=== PATIENT | female | born 1960 | race Caucasian/White ===

== ENCOUNTER → 2017-05-03 | Outpatient (CLI) | payer BC ==
[~2017-05-03] MED LIST: ASPI-983 PO; EST05TD TD; FERR325C PO; LEVO100T7 PO; LEVO500T69 PO; LVT.088T; LVT.15T PO; LVT.1T PO; MELO15TA39 PO; METR500T PO; OXYC-12 PO; PANT40TA3 PO
--- NOTE | 2017-05-03 18:06 | Diagnostic Imaging Report ---
INDICATION: Lump in the lateral left neck. FINDINGS: Sonographic interrogation of the area of lump in the lateral left neck was performed. No solid or cystic mass is detected. IMPRESSION: No sonographic abnormality is detected. Dictated by: Dictated on workstation # [id number]
== END ==
LOC: RAD 13:28
PROVIDERS: ATTEND Family Medicine
DX: E03.9 Hypothyroidism, unspecified (principal); R22.1 Localized swelling, mass and lump, neck
CPT/HCPCS: 76536

== ENCOUNTER → 2018-01-18 | Outpatient (CLI) | payer BC ==
--- NOTE | 2018-01-18 13:35 | Diagnostic Imaging Report ---
INDICATION: Routine screening. Comparison is made with prior mammogram from 05/31/2009. 2-D and 3-D bilateral screening mammography was performed with CAD. The current study was also evaluated with a Computer Aided Detection (CAD) system. FINDINGS: Scattered fibroglandular densities are identified bilaterally. The parenchymal pattern is stable. Intramammary lymph nodes in the outer left breast appear stable. No new mass or malignant-appearing microcalcifications are seen. There are benign calcifications. The axillae are unremarkable. IMPRESSION: No mammographic features suspicious for malignancy are identified. ACR BI-RADS Category 2: Benign findings. Result letter will be mailed to the patient. Note: At least 10% of breast cancer is not imaged by mammography. Dictated by: Dictated on workstation # [id number]
== END ==
LOC: RAD 07:40
PROVIDERS: ATTEND Family Medicine
DX: Z12.31 Encounter for screening mammogram for malignant neoplasm of breast (principal)
CPT/HCPCS: 77067

== ENCOUNTER 2018-02-12 13:15 | Outpatient (CLI) | payer BC ==
[~2018-02-12] VITALS: Ht 162.6 cm; Wt 99.8 kg
[2018-02-12] MEDS ORDERED: METO-370 PO (13:45)
[2018-02-12] MEDS ORDERED: BUPR150T7 PO (13:45)
[2018-02-12] MEDS ORDERED: AMLO5TAB7 PO (13:45)
[2018-02-12] MEDS ORDERED: ASPI-999 PO (13:48)
== END 2018-02-12 13:48 | disposition home or self-care (01) ==
LOC: PREOP 13:15
PROVIDERS: ATTEND Surgery
DX: Z01.818 Encounter for other preprocedural examination (principal)

== ENCOUNTER 2018-02-18 06:53 | Day surgery (SDC) | payer BC ==
[~2018-02-18] VITALS: Ht 162.6 cm; Wt 99.8 kg
[~2018-02-18 06:53] MED LIST changes: +AMLO5TAB7 PO; +ASPI-999 PO; +BUPR150T7 PO; +METO-370 PO
[2018-02-18] MEDS ORDERED: LACTATED RINGERS 1,000 ML IV ONE (07:04)
[2018-02-18] MEDS ORDERED: NS IV 500 ML 500 ML IV PRN (07:24)
[2018-02-18 07:27] VITALS: BP 133/83
[2018-02-18] MEDS ORDERED: fentaNYL INJECTION 100 MCG/2 ML AMP IVP ONE (07:30)
[2018-02-18] MEDS ORDERED: MIDAZOLAM 2 MG/2 ML (VERSED) VIAL IVP ONE (07:30)
[2018-02-18] MEDS ORDERED: MIDAZOLAM 2 MG/2 ML (VERSED) VIAL ONE ×3 (07:44)
[2018-02-18] MEDS ORDERED: fentaNYL INJECTION 100 MCG/2 ML AMP ONE ×2 (07:45→08:56)
--- NOTE | 2018-02-18 08:43 | History & Physicial ---
History of Present Illness History of Present Illness Reason for visit/HPI to undergo screening colonoscopy. No family history of colon cancer Date of Admission 02/18/18 Date Seen by a Provider: Feb 18, 2018 Time Seen by a Provider: 08:42 I consulted on this patient on 02/18/18 08:41 Attending Physician Marcy Tejeda MD Admitting Physician Corine Duffy DO Consult Allergies and Home Medications Allergies Coded Allergies: NKANo Known Allergies (Unverified Allergy, Mild, 06/17/09) Home Medications Amlodipine Besylate 5 Mg Tablet, 5 MG PO DAILY, (Reported) Aspirin 81 Mg Tab.chew, 81 MG PO DAILY, (Reported) Bupropion HCl 150 Mg Tab.er.24h, 150 MG PO DAILY, (Reported) Levothyroxine Sodium 100 Mcg Tablet, 100 MCG PO DAILY, (Reported) Metoprolol Succinate 50 Mg Tab.er.24h, 50 MG PO HS, (Reported) Patient Home Medication List Home Medication List Reviewed: Yes Past Uyzavkl-Rijfrx-Rmxmxj Hx Patient Social History Marrital Status: Employed/Student: unemployed Alcohol Use: Denies Use Recreational Drug Use: No Smoking Status: Never a Smoker Recent Foreign Travel: No Contact w/other who traveled: No Recent Hopitalizations: No Immunizations Up To Date Date of Influenza Vaccine: Dec 31, 2017 Seasonal Allergies Seasonal Allergies: Yes Surgeries Appendectomy, Gallbladder, Hysterectomy Cardiovascular Yes Hypertension Reproductive System Hx Reproductive Disorders: No Sexually Transmitted Disease: No Endocrine History of Endocrine Disorders: Yes Endocrine Disorders: Hypothyroidsim Review of Systems Constitutional: no symptoms reported EENTM: no symptoms reported Respiratory: no symptoms reported Cardiovascular: no symptoms reported Gastrointestinal: no symptoms reported Genitourinary: no symptoms reported Musculoskeletal: no symptoms reported Skin: no symptoms reported Psychiatric/Neurological: No Symptoms Reported Physical Exam Vital Signs Vital Signs - First Documented 02/18/18 07:27 Temp 98.1 Pulse 62 Resp 18 B/P (MAP) 133/83 (100) Pulse Ox 97 O2 Delivery Room Air Capillary Refill : Height, Weight, BMI Height: 5'4.00" Weight: 220lbs. 0.0oz. 99.586214pp; 37.8 BMI Method:Estimated General Appearance: No Apparent Distress Neck: Normal Inspection Respiratory: Lungs Clear Cardiovascular: Regular Rate, Rhythm Gastrointestinal: Non Tender, Soft Rectal: Deferred Neurologic/Psychiatric: Alert, Oriented x3 Skin: Warm/Dry Assessment/Plan Assessment and Plan lady to undergo screening colonoscopy. Discussed in detail Admission Diagnosis Admission Status: Other (Outpt Proc) MARCY TEJEDA MD Feb 18, 2018 08:43
--- NOTE | 2018-02-18 08:43 | Conscious Sedation/ASA ---
Conscious Sedation Pre-Proced Time 08:43 ASA Score 2 For ASA 3 and 4: Consider anesthesia and medical clearance. Also, for patients with a history of failed moderate sedation consider anesthesia. Airway Lungs Heart ASA score ASA 1: a normal healthy patient ASA 2: a patient with a mild systemic disease (mid diabetes, controlled hypertension, obesity ASA 3: a patient with a severe systemic disease that limits activity (angina , COPD, prior Myocardial infarction) ASA 4: a patient with an incapacitating disease that is a constant threat to life (CHF, renal failure) ASA 5: a moribund patient not expected to survive 24 hrs. (ruptured aneurysm) ASA 6: a declared brain patient whose organs are being harvested. For emergent operations, add the letter E after the classification Mallampati Classification Grade 1 Sedation Plan Discussed options with patient/fam The patient is an appropriate candidate to undergo the planned procedure, sedation, and anesthesia. The patient immediately re-assessed prior to indication. MARCY FLOREZ MD Feb 18, 2018 08:43
[2018-02-18 09:15] VITALS: BP 107/64
--- NOTE | 2018-02-18 09:19 | Endo Procedure Record ---
Endo Procedure Report Date of Procedure Last Colonoscopy: No Feb 18, 2018 Surgeon (s) MARCY FLOREZ MD Post Procedure/Op Diagnosis sigmoid diverticulosis Procedure Performed colonoscopy to cecum Description of Procedure Anesthesia Type: Conscious Sedation Specimen(s) collected/removed None Description of the Procedure indication for the procedure: This lady came in for screening colonoscopy. She denied any family history of colon cancer or polyps. Informed consent was obtained after reviewing the procedure in detail. Description of the procedure: She was placed in left lateral decubitus position and her vital signs were monitored. Conscious sedation was achieved using Versed and fentanyl. Digital rectal examination was unremarkable. The colonoscope was then introduced in the rectum and advanced all the way up to the cecum. The quality of bowel preparation was rather suboptimal. I was however able to irrigate the mucosa and complete the examination. The scope was then withdrawn slowly and the mucosa examined in a systematic fashion. Finding: Very few sigmoid diverticulae. She tolerated the procedure well and was taken back to the nursing area in a stable condition. Impression: Screening colonoscopy. No polyps. No family history. Recommend repeating in 10 years. Copy Copies To 1: GAVIN NDIAYE XAVIER M MD Feb 18, 2018 09:19
--- NOTE | 2018-02-18 09:20 | Discharge Inst-Simple/Standard ---
Discharge Inst-Standard Discharge Medications New, Converted or Re-Newed RX: Other Patient Instructions/Follow Up Plan of Care/Instructions/FU: repeat colonoscopy in 10 years Activity as Tolerated: Yes Discharge Diet: No Restrictions MARCY FLOREZ MD Feb 18, 2018 09:20
[2018-02-18 09:45] VITALS: BP 118/73
[2018-02-18 10:15] VITALS: BP 118/73
== END 2018-02-18 10:15 | disposition home or self-care (01) ==
LOC: ENDO 06:53
PROVIDERS: ATTEND Surgery
DX: Z12.11 Encounter for screening for malignant neoplasm of colon (principal); E03.9 Hypothyroidism, unspecified; I10 Essential (primary) hypertension; Z79.899 Other long term (current) drug therapy; Z79.82 Long term (current) use of aspirin

== ENCOUNTER 2018-04-22 08:33 | Day surgery (SDC) | payer BC ==
[2018-04-22] VITALS (10 sets, daily range): BP systolic 120–140; BP diastolic 62–86
[~2018-04-22] VITALS: Ht 162.6 cm; Wt 97.5 kg
[~2018-04-22 08:33] MED LIST changes: -AMLO5TAB7 PO; +AMLO5TAB9 PO
--- OUTSIDE RECORDS SUMMARY | 2018-04-22 08:39 | XMS REPORT | Continuity of Care Document ---
Author Author [facility] Organization [facility] Address Unknown Phone Unavailable Allergies Active Description Code Type Severity Reaction Onset Reported/Identified Relationship to Patient Clinical Status Yes NKANo Known Allergies NKA Miscellaneous Allergy Mild N/A 06/17/2009 Medications There is no data. 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 05/04/2017 ORENDER DO, GAVIN S Ot E03.9 HYPOTHYROIDISM, UNSPECIFIED 05/04/2017 ORENDER DO, GAVIN S Ot R22.1 LOCALIZED SWELLING, MASS AND LUMP, NECK 05/04/2017 ORENDER DO, GAVIN S Ot E03.9 HYPOTHYROIDISM, UNSPECIFIED 05/04/2017 ORENDER DO, GAVIN S Ot R22.1 LOCALIZED SWELLING, MASS AND LUMP, NECK 05/16/2017 ORENDER DO, GAVIN S Ot E03.9 HYPOTHYROIDISM, UNSPECIFIED 05/16/2017 ORENDER DO, GAVIN S Ot R22.1 LOCALIZED SWELLING, MASS AND LUMP, NECK 06/29/2017 ORENDER DO, GAVIN S Ot E03.9 HYPOTHYROIDISM, UNSPECIFIED 06/29/2017 ORENDER DO, GAVIN S Ot R22.1 LOCALIZED SWELLING, MASS AND LUMP, NECK 08/20/2017 ORENDER DO, GAVIN S Ot E03.9 HYPOTHYROIDISM, UNSPECIFIED 08/20/2017 ORENDER DO, GAVIN S Ot R22.1 LOCALIZED SWELLING, MASS AND LUMP, NECK 01/22/2018 BERTJENNY GAVIN S Ot Z12.31 ENCNTR SCREEN MAMMOGRAM FOR MALIGNANT NE 01/24/2018 ZELDA NAGY GAVIN S Ot Z12.31 ENCNTR SCREEN MAMMOGRAM FOR MALIGNANT NE 02/12/2018 VIKKI MARSHALL, MARCY Foreman Ot Z01.818 ENCOUNTER FOR OTHER PREPROCEDURAL EXAMIN 02/12/2018 MARCY FLOREZ MD Ot Z01.818 ENCOUNTER FOR OTHER PREPROCEDURAL EXAMIN 02/12/2018 MARCY FLOREZ MD Ot Z01.818 ENCOUNTER FOR OTHER PREPROCEDURAL EXAMIN 02/18/2018 MARCY FLOREZ MD Ot E03.9 HYPOTHYROIDISM, UNSPECIFIED 02/18/2018 MARCY FLOREZ MD Ot I10 ESSENTIAL (PRIMARY) HYPERTENSION 02/18/2018 MARCY FLOREZ MD Ot Z12.11 ENCOUNTER FOR SCREENING FOR MALIGNANT NE 02/18/2018 MARCY FLOREZ MD Ot Z79.82 DETENTION (CURRENT) USE OF ASPIRIN 02/18/2018 MARCY FLOREZ MD Ot Z79.899 OTHER DETENTION (CURRENT) DRUG THERAPY 02/19/2018 MARCY FLOREZ MD Ot E03.9 HYPOTHYROIDISM, UNSPECIFIED 02/19/2018 MARCY FLOREZ MD Ot I10 ESSENTIAL (PRIMARY) HYPERTENSION 02/19/2018 MARCY FLOREZ MD Ot Z12.11 ENCOUNTER FOR SCREENING FOR MALIGNANT NE 02/19/2018 MARCY FLOREZ MD Ot Z79.82 DETENTION (CURRENT) USE OF ASPIRIN 02/19/2018 MARCY FLOREZ MD Ot Z79.899 OTHER DETENTION (CURRENT) DRUG THERAPY 02/26/2018 MARCY FLOREZ MD Ot E03.9 HYPOTHYROIDISM, UNSPECIFIED 02/26/2018 MARCY FLOREZ MD Ot I10 ESSENTIAL (PRIMARY) HYPERTENSION 02/26/2018 MARCY FLOREZ MD Ot Z12.11 ENCOUNTER FOR SCREENING FOR MALIGNANT NE 02/26/2018 MARCY FLOREZ MD Ot Z79.82 DETENTION (CURRENT) USE OF ASPIRIN 02/26/2018 MARCY FLOREZ MD Ot Z79.899 OTHER P[employer] F[employer] EGG (CURRENT) DRUG THERAPY Procedures There is no data. Results There is no data. Encounters ACCT No. Visit Date/Time Discharge Status Pt. Type Provider Facility Loc./Unit Complaint [id number] 02/18/2018 06:53:00 02/18/2018 10:15:00 DIS Outpatient MARCY FLOREZ MD [facility] ENDO SCREENING [id number] 02/12/2018 13:15:00 02/12/2018 13:48:00 DIS Outpatient MARCY FLOREZ MD [facility] PREOP COLONOSCOPY [id number] 01/18/2018 07:40:00 01/18/2018 23:59:59 CLS Outpatient GAVIN NDIAYE DO [facility] RAD SCREENING [id number] 05/03/2017 13:28:00 05/03/2017 23:59:59 CLS Outpatient GAVIN NDIAYE DO [facility] RAD LT NECK MASS [id number] 01/07/2015 14:07:00 01/08/2015 11:05:00 DIS Outpatient SHIN MARSHALL, NATALYA Mitchell [facility] CATH CHEST PAIN 09/201512/22/2017 23:11:53 12/22/2017 23:59:59 CLS Outpatient
[2018-04-22] MEDS ORDERED: ASPIRIN 81 MG CHEW (CHILDREN'S ASA) PO ONE (08:45)
[2018-04-22 08:51] LABS: BASOPHILS # (AUTO) 0.1 10^3/uL (0.0-0.1); BASOPHILS % (AUTO) 1 % (0-10); EOSINOPHILS # (AUTO) 0.2 10^3/uL (0.0-0.3); EOSINOPHILS % (AUTO) 3 % (0-10); HEMATOCRIT 43 % (35-52); HEMOGLOBIN 14.1 G/DL (11.5-16.0); LYMPHOCYTES # (AUTO) 2.4 X 10^3 (1.0-4.0); LYMPHOCYTES % (AUTO) 34 % (12-44); MEAN CORPUSCULAR HEMOGLOBIN 29 PG (25-34); MEAN CORPUSCULAR HGB CONC 33 G/DL (32-36); MEAN CORPUSCULAR VOLUME 86 FL (80-99); MEAN PLATELET VOLUME 10.9 FL (7.4-10.4); MONOCYTES # (AUTO) 0.5 X 10^3 (0.0-1.0); MONOCYTES % (AUTO) 7 % (0-12); NEUTROPHILS # (AUTO) 3.9 X 10^3 (1.8-7.8); NEUTROPHILS % (AUTO) 55 % (42-75); PLATELET COUNT 202 10^3/uL (130-400); RED BLOOD COUNT 4.95 10^6/uL (4.35-5.85)
[2018-04-22] MEDS: NITROGLYCERIN 0.4 MG SL TABS BTL 25'S SL PRN ×3 (08:57→09:25)
[2018-04-22 09:02] LABS: INR 0.9 (0.8-1.4); PROTHROMBIN TIME PATIENT 12.3 SEC (12.2-14.7)
[2018-04-22 09:10] LABS: ALANINE AMINOTRANSFERASE 20 U/L (0-55); ALBUMIN 4.6 GM/DL (3.2-4.5); ALKALINE PHOSPHATASE 59 U/L (40-136); BILIRUBIN,TOTAL 0.7 MG/DL (0.1-1.0); BUN/CREATININE RATIO 13; CALCIUM 9.7 MG/DL (8.5-10.1); CARBON DIOXIDE 25 MMOL/L (21-32); CHLORIDE 106 MMOL/L (98-107); CREATININE SERUM 0.83 MG/DL (0.60-1.30); GFR ESTIMATED > 60; GLUCOSE 97 MG/DL (70-105); MAGNESIUM 2.4 MG/DL (1.8-2.4); POTASSIUM 3.8 MMOL/L (3.6-5.0); SODIUM 140 MMOL/L (135-145); TOTAL PROTEIN 8.2 GM/DL (6.4-8.2)
--- NOTE | 2018-04-22 09:14 | NUR ---
DR NOTIFIED OF 2ND NITRO GIVEN ET PT COMPLAINING OF A HEADACHE.
--- NOTE | 2018-04-22 09:16 | Diagnostic Imaging Report ---
CLINICAL INDICATION: Patient complains of chest pain x2 days and also complains of left arm pain that radiates to her back. EXAM: Portable chest x-ray upright view. COMPARISONS: Chest x-ray dated 01/07/2015. FINDINGS: Lungs/pleura: Lungs are clear. There is no pneumothorax. There is no pleural effusion. Mediastinum: Unremarkable. Pulmonary vasculature: Unremarkable. Heart: Unremarkable. Bones/extrathoracic soft tissue: Unremarkable. IMPRESSION: There is no radiographic evidence of acute cardiopulmonary process. Dictated by: Dictated on workstation # [id number]
[2018-04-22 09:17] LABS: MYOGLOBIN SERUM 44.3 NG/ML (10.0-92.0)
--- NOTE | 2018-04-22 09:24 | ED Chest Pain ---
General Chief Complaint: Chest Pain Stated Complaint: CHEST PAIN Nursing Triage Note: ARRIVED VIA AMB TO ROOM 04 WITH COMPLAINTS OF CHEST PAIN FOR X3 DAYS. ALSO COMPLAINS LEFT ARMPAIN THAT RADIATES TO HER BACK. Nursing Sepsis Screen: No Definite Risk Source: patient Exam Limitations: no limitations History of Present Illness Date Seen by Provider: Apr 22, 2018 Time Seen by Provider: 08:30 Initial Comments Here with report of chest pain intermittent over the last 3 days. Reports persistent over the last 12 hours and now radiating to her left arm and her back. Denies nausea or vomiting. Denies breathing problems. 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 Timing/Duration: changing over time, 2-3 days Severity/Quality: moderate, pressure Location: central (left-sided) Radiation: arms (left), shoulders (left) Activities at Onset: none Prior CP/Workup: cardiac cath, echocardiography Modifying Factors: improves with rest ASA po CONCRETE LAYER: No NTG SL CONCRETE LAYER: No Associated Symptoms: No abdominal pain, No back pain, No nausea/vomiting, No shortness of breath, No weakness Allergies and Home Medications Allergies Coded Allergies: NKANo Known Allergies (Unverified Allergy, Mild, 06/17/09) Home Medications Amlodipine Besylate 5 Mg Tablet, 5 MG PO DAILY, (Reported) Aspirin 81 Mg Tab.chew, 81 MG PO DAILY, (Reported) Bupropion HCl 150 Mg Tab.er.24h, 150 MG PO DAILY, (Reported) Levothyroxine Sodium 100 Mcg Tablet, 100 MCG PO DAILY, (Reported) Metoprolol Succinate 50 Mg Tab.er.24h, 50 MG PO HS, (Reported) Patient Home Medication List Home Medication List Reviewed: Yes Review of Systems Review of Systems Constitutional: see HPI EENTM: No Symptoms Reported Respiratory: No Symptoms Reported Cardiovascular: See HPI, Chest Pain; Denies Edema Gastrointestinal: Denies Abdominal Pain, Denies Nausea, Denies Vomiting Genitourinary: No Symptoms Reported Musculoskeletal: joint pain, muscle pain Skin: No change in color, No rash Psychiatric/Neurological: No Symptoms Reported All Other Systems Reviewed Negative Unless Noted: Yes Past Ailgyel-Ecxxul-Fnngeq Hx Past Med/Social Hx: Reviewed Nursing Past Med/Soc Hx Patient Social History Alcohol Use: Denies Use Recreational Drug Use: No Smoking Status: Never a Smoker Recent Foreign Travel: No Contact w/Someone Who Travel: No Recent Infectious Disease Expo: No Recent Hopitalizations: No Immunizations Up To Date Date of Influenza Vaccine: Dec 31, 2017 Seasonal Allergies Seasonal Allergies: Yes Past Medical History Surgeries: Yes Appendectomy, Gallbladder, Hysterectomy Respiratory: No Cardiac: Yes Hypertension Neurological: No Reproductive Disorders: No Sexually Transmitted Disease: No Genitourinary: No Gastrointestinal: No Musculoskeletal: No Endocrine: Yes Hypothyroidsim Cancer: No Did You Recieve Any Treatments: No Psychosocial: No Integumentary: No Blood Disorders: No Family Medical History Reviewed Nursing Family Hx Physical Exam Vital Signs Vital Signs - First Documented 04/22/18 08:35 Temp 98.0 Pulse 85 Resp 16 B/P (MAP) 140/ Pulse Ox 99 O2 Delivery Room Air Capillary Refill : Less Than 3 Seconds Height, Weight, BMI Height: 5'3.00" Weight: 170lbs. 0.0oz. 77.146428rk; 37.8 BMI Method:Estimated General Appearance: No Apparent Distress, WD/WN HEENT: PERRL/EOMI, Pharynx Normal Neck: Non Tender, Supple Respiratory: Lungs Clear, Normal Breath Sounds Cardiovascular: Regular Rate, Rhythm, No Murmur Gastrointestinal: Non Tender, Soft Extremity: Normal Range of Motion, Non Tender Neurologic/Psychiatric: Alert, Oriented x3 Skin: Normal Color, Warm/Dry Progress/Results/Core Measures Results/Orders Lab Results Laboratory Tests Test 04/22/18 08:45 Range/Units White Blood Count 7.0 4.3-11.0 10^3/uL Red Blood Count 4.95 4.35-5.85 10^6/uL Hemoglobin 14.1 11.5-16.0 G/DL Hematocrit 43 35-52 % Mean Corpuscular Volume 86 80-99 FL Mean Corpuscular Hemoglobin 29 25-34 PG Mean Corpuscular Hemoglobin Concent 33 32-36 G/DL Red Cell Distribution Width 13.0 10.0-14.5 % Platelet Count 202 130-400 10^3/uL Mean Platelet Volume 10.9 H 7.4-10.4 FL Neutrophils (%) (Auto) 55 42-75 % Lymphocytes (%) (Auto) 34 12-44 % Monocytes (%) (Auto) 7 0-12 % Eosinophils (%) (Auto) 3 0-10 % Basophils (%) (Auto) 1 0-10 % Neutrophils # (Auto) 3.9 1.8-7.8 X 10^3 Lymphocytes # (Auto) 2.4 1.0-4.0 X 10^3 Monocytes # (Auto) 0.5 0.0-1.0 X 10^3 Eosinophils # (Auto) 0.2 0.0-0.3 10^3/uL Basophils # (Auto) 0.1 0.0-0.1 10^3/uL Prothrombin Time 12.3 12.2-14.7 SEC INR Comment 0.9 0.8-1.4 Activated Partial Thromboplast Time 30 24-35 SEC D-Dimer 0.26 0.00-0.49 UG/ML Sodium Level 140 135-145 MMOL/L Potassium Level 3.8 3.6-5.0 MMOL/L Chloride Level 106 98-107 MMOL/L Carbon Dioxide Level 25 21-32 MMOL/L Anion Gap 9 5-14 MMOL/L Blood Urea Nitrogen 11 7-18 MG/DL Creatinine 0.83 0.60-1.30 MG/DL Estimat Glomerular Filtration Rate > 60 BUN/Creatinine Ratio 13 Glucose Level 97 70-105 MG/DL Calcium Level 9.7 8.5-10.1 MG/DL Corrected Calcium 8.5-10.1 MG/DL Magnesium Level 2.4 1.8-2.4 MG/DL Total Bilirubin 0.7 0.1-1.0 MG/DL Aspartate Amino Transf (AST/SGOT) 21 5-34 U/L Alanine Aminotransferase (ALT/SGPT) 20 0-55 U/L Alkaline Phosphatase 59 40-136 U/L Myoglobin 44.3 10.0-92.0 NG/ML Troponin I < 0.028 <0.028 NG/ML Total Protein 8.2 6.4-8.2 GM/DL Albumin 4.6 H 3.2-4.5 GM/DL Lipase 17 8-78 U/L My Orders Orders - MARLEEN RAYMUNDO MD Cbc With Automated Diff (04/22/18 08:40) Magnesium (04/22/18 08:40) Chest 1 View, Ap/Pa Only (04/22/18 08:40) Ekg Tracing (04/22/18 08:40) Cardiac Profile 1 (04/22/18 08:40) Comprehensive Metabolic Panel (04/22/18 08:40) Myoglobin Serum (04/22/18 08:40) Protime With Inr (04/22/18 08:40) Partial Thromboplastin Time (04/22/18 08:40) O2 (04/22/18 08:40) Monitor-Rhythm Ecg Trace Only (04/22/18 08:40) Lipid Panel (04/23/18 06:00) Aspirin Chewable Tablet (Baby Aspirin Ch (04/22/18 08:45) Saline Lock/Iv-Start (04/22/18 08:40) Nitroglycerin 0.4 Mg Btl 25's (Nitrostat (04/22/18 09:00) Lipase (04/22/18 08:47) Fibrin Degradation Products (04/22/18 08:47) Acetaminophen Tablet (Tylenol Tablet) (04/22/18 09:30) Saline Lock/Iv-Start (04/22/18 09:34) Ns Iv 1000 Ml (Sodium Chloride 0.9%) (04/22/18 09:34) Ct Angio Chest W (04/22/18 09:34) Lidocaine 2% Viscous 15 Ml (Xylocaine Vi (04/22/18 09:45) Antacid Suspension (Mylanta Suspension (04/22/18 09:45) Pantoprazole Injection (Protonix Injecti (04/22/18 09:45) Morphine Injection (Morphine Injection (04/22/18 09:41) Iohexol Injection (Omnipaque 350 Mg/Ml 1 (04/22/18 09:45) Contrast Received (Contrast Received) (04/22/18 09:45) Ns (Ivpb) (Sodium Chloride 0.9% Ivpb Bag (04/22/18 09:45) Fentanyl Injection (Sublimaze Injection (04/22/18 11:18) Medications Given in ED Current Medications Medications Dose Ordered Sig/Vicki Route Start Time Stop Time Status Last Admin Dose Admin Acetaminophen 1,000 mg ONCE ONCE PO 04/22/18 09:30 04/22/18 09:31 DC 04/22/18 09:26 1,000 MG Al Hydrox/Mg Hydrox/Simethicone 30 ml ONCE ONCE PO 04/22/18 09:45 04/22/18 09:46 DC 04/22/18 09:43 30 ML Aspirin 324 mg ONCE ONCE PO 04/22/18 08:45 04/22/18 08:46 DC 04/22/18 08:56 324 MG Iohexol 150 ml ONCE ONCE IV 04/22/18 09:45 04/22/18 09:46 DC 04/22/18 09:57 125 ML Lidocaine HCl 15 ml ONCE ONCE PO 04/22/18 09:45 04/22/18 09:46 DC 04/22/18 09:43 15 ML Nitroglycerin 0.4 mg UD PRN SL 04/22/18 09:00 04/22/18 09:26 DC 04/22/18 09:25 0.4 MG Pantoprazole 40 mg ONCE ONCE IV 04/22/18 09:45 04/22/18 09:46 DC 04/22/18 09:42 40 MG Sodium Chloride 100 ml ONCE ONCE IV 04/22/18 09:45 04/22/18 09:46 DC 04/22/18 09:57 80 ML Sodium Chloride 1,000 ml @ 0 mls/hr Q0M ONCE IV 04/22/18 09:34 04/22/18 09:36 DC 04/22/18 09:42 1,000 MLS/HR Vital Signs/I&O 04/22/18 08:35 Temp 98.0 Pulse 85 Resp 16 B/P (MAP) 140/ Pulse Ox 99 O2 Delivery Room Air Progress Progress Note : Progress Note Seen and evaluated. IV, labs, EKG and chest x-ray ordered. ASA 324 mg by mouth ordered. Nitroglycerin sublingual ordered. This did not change her pain but did cause headache. Tylenol 1 g by mouth ordered. Monitor patient. 0940: Third nitroglycerin did not significantly help her pain. GI cocktail ordered. Protonix [address] Shay has seen the patient. We will get CT angiogram of the chest. Morphine 5 mg IV ordered. Monitor the patient. This did help the pain briefly. 1059: Pain returns. CT angiogram negative. I did discuss the case with Dr. Shay and he accepts patient for admission, observation status. Patient and family agree with plan. Initial ECG Impression Date: Apr 22, 2018 Initial ECG Impression Time: 08:37 Initial ECG Rate: 70 Initial ECG Rhythm: Normal Sinus Comment Sinus rhythm with normal axis. Inverted T's in the lateral leads. Overall fairly similar but T-wave changes somewhat more pronounced since 07 January 2015. Interpreted by me. Diagnostic Imaging Diagonstic Imaging: Xray Plain Films/CT/US/NM/MRI: chest Comments [facility] [place] NAME: STORMY MONTOYA [facility] REC#: [id number] PT STATUS: REG ER : 1960 PHYSICIAN: MARLEEN RAYMUNDO MD ADMIT DATE: 04/22/18/ER Draft Date of Exam:04/22/18 CHEST 1 VIEW, AP/PA ONLY CLINICAL INDICATION: Patient complains of chest pain x2 days and also complains of left arm pain that radiates to her back. EXAM: Portable chest x-ray upright view. COMPARISONS: Chest x-ray dated 01/07/2015. FINDINGS: Lungs/pleura: Lungs are clear. There is no pneumothorax. There is no pleural effusion. Mediastinum: Unremarkable. Pulmonary vasculature: Unremarkable. Heart: Unremarkable. Bones/extrathoracic soft tissue: Unremarkable. IMPRESSION: There is no radiographic evidence of acute cardiopulmonary process. Dictated on workstation # [id number] Dict: 04/22/18 0913 Trans: 04/22/18 0915 [id number] Interpreted by: JACK VEGAS MD Electronically signed by: Diagonstic Imaging: CT Plain Films/CT/US/NM/MRI: chest Comments [facility] [place] NAME: STORMY MONTOYA [facility] REC#: [id number] PT STATUS: REG ER : 1960 PHYSICIAN: MARLEEN RAYMUNDO MD ADMIT DATE: 04/22/18/ER Draft Date of Exam:04/22/18 CT ANGIO CHEST W PROCEDURE: CT angiography of the chest with contrast. TECHNIQUE: Multiple contiguous axial images were obtained through the chest after uneventful bolus administration of intravenous contrast. 2D reconstructed CTA MIP acquisitions were also performed. INDICATION: Chest and left shoulder region pain. FINDINGS: There is good opacification of pulmonary arteries without intraluminal filling defect. Thoracic aorta is also unremarkable in appearance. Lungs are clear. There is no significant pleural or pericardial fluid. There is calcified granuloma in the right lower lobe as well as within subcarinal lymph nodes. There is no significant pleural or pericardial fluid. IMPRESSION: No CTA evidence of pulmonary embolism or other acute abnormality in the chest. Dictated on workstation # [id number] Dict: 04/22/18 1018 Trans: 04/22/18 1023 [id number] Interpreted by: NICHELLE GUZMAN MD Electronically signed by: Departure Communication (Admissions) Time/Spoke to Admitting Phy: 10:59 Impression Primary Impression: Chest pain Qualified Codes: R07.9 - Chest pain, unspecified Disposition: ADMITTED INPATIENT Condition: Stable Admissions Decision to Admit Reason: Admit from ER (General) Decision to Admit/Date: Apr 22, 2018 Time/Decision to Admit Time: 10:59 Departure-Patient Inst. Referrals: GAVIN NDIAYE DO (PCP/Family) Primary Care Physician MARLEEN RAYMUNDO MD Apr 22, 2018 09:24
--- NOTE | 2018-04-22 09:29 | NUR ---
DR MELISSA HERE TO SEE PT.
[2018-04-22] MEDS ORDERED: ACETAMINOPHEN 500 MG TAB (TYLENOL) PO ONE (09:30)
[2018-04-22] MEDS ORDERED: NS IV 1000 ML 1,000 ML IV ONE (09:34)
[2018-04-22] MEDS ORDERED: morphine INJ 10 MG/ML 1ML (SYR OR VIAL) IVP STA (09:41)
[2018-04-22] MEDS ORDERED: ANTACID SUSP 30 ML UDC (MYLANTA) PO ONE (09:45)
[2018-04-22] MEDS ORDERED: PANTOPRAZOLE 40 MG (PROTONIX) VIAL IV ONE (09:45)
[2018-04-22] MEDS ORDERED: LIDOCAINE 2% VISCOUS 15 ML UDC PO ONE (09:45)
[2018-04-22] MEDS ORDERED: IOHEXOL 350 MG/ML 150 ML (OMNIPAQUE 350) VIAL IV ONE (09:45)
[2018-04-22] MEDS ORDERED: RECEIVED CONTRAST (Hold Metformin) IV SCH (09:45)
[2018-04-22] MEDS ORDERED: NS 100 ML (IVPB) BAG IV ONE (09:45)
--- NOTE | 2018-04-22 10:23 | Diagnostic Imaging Report ---
PROCEDURE: CT angiography of the chest with contrast. TECHNIQUE: Multiple contiguous axial images were obtained through the chest after uneventful bolus administration of intravenous contrast. 2D reconstructed CTA MIP acquisitions were also performed. INDICATION: Chest and left shoulder region pain. FINDINGS: There is good opacification of pulmonary arteries without intraluminal filling defect. Thoracic aorta is also unremarkable in appearance. Lungs are clear. There is no significant pleural or pericardial fluid. There is calcified granuloma in the right lower lobe as well as within subcarinal lymph nodes. There is no significant pleural or pericardial fluid. IMPRESSION: No CTA evidence of pulmonary embolism or other acute abnormality in the chest. Dictated by: Dictated on workstation # [id number]
--- NOTE | 2018-04-22 10:37 | NUR ---
PT COMPLAINS OF PRESSURE ALL THRUOUT HER CHEST. STATES IT GOT BETTER WITH THE MORPHINE BUT IS NOW BACK. STATES HER HEADACHE IS BETTER. DR NOTIFIED.
--- NOTE | 2018-04-22 11:10 | Cardiology History & Physical ---
HPI-Cardiology Cardiology Consultation Date of Consultation 04/22/18 Date of Admission Time Seen by Provider: 11:06 Indication: chest pain HPI 57 years old lady with history of coronary artery disease, hypertension. Has been having chest pain for about a week described it as starting as a sharp retrosternal pain radiating to the back and both shoulder occurred about a week ago then continued to have waxing and waning chest pain described it as dull in nature in the retrosternal area radiating to the back. Came in this morning to the emergency room after having persistent chest pain. Did not respond to sublingual nitroglycerin. No palpitation. No syncope or near syncopal episodes. No claudications, reporting that the pain is radiating to both arms. PMH-Cardiology Immunizations Up To Date Date of Influenza Vaccine: Dec 31, 2017 Seasonal Allergies Seasonal Allergies: Yes Surgeries Yes Respiratory No Cardiovascular Yes Neurological No Reproductive System Hx Reproductive Disorders: No Sexually Transmitted Disease: No Genitourinary No Gastrointestinal No Musculoskeletal No Endocrine Yes Hypothyroidsim Cancer No Did You Recieve Any Treatments: No Psychosocial No Integumentary No Blood Transfusions No Other PMHx past medical history included discussed below Social History Patient Social History Marrital Status: Employed/Student: employed Alcohol Use: Denies Use Recreational Drug Use: No Smoking: Never smoker Recent Foreign Travel: No Contact w/other who traveled: No Recent Infectious Disease Expo: No Family Hx Other Noncontributory to her current condition ROS-Cardiology Review of Systems General: No Chills, No Night Sweats, No Fatigue, No Malaise, No Appetite HEENT: No Head Aches, No Visual Changes, No Eye Pain, No Ear Pain, No Dysphasia , No Sinus Congestion, No Post Nasal Drip, No Sore Throat Pulmonary: No Dyspnea, No Cough, No Pleuritic Chest Pain Cardiovascular: Chest Pain; No: Palpitations, Orthopnea, Paroxysmal Noc. Dyspnea, Edema, Lt Headedness Gastrointestinal: No: Nausea, Vomiting, Abdominal Pain, Diarrhea, Constipation , Melena, Hematochezia Genitourinary: No Dysuria, No Frequency, No Incontinence, No Hematuria, No Retention Musculoskeletal: No: neck pain, shoulder pain, arm pain, back pain, hand pain, leg pain, foot pain Neurological: No: Weakness, Numbness, Incoordination, Change in speech, Confusion, Seizures Home Medications & Allergies Allergies: Coded Allergies: NKANo Known Allergies (Unverified Allergy, Mild, 06/17/09) Home Medication List Reviewed: Yes Exam-Cardiology Vital Signs Vital Signs Date Time Temp Pulse Resp B/P (MAP) Pulse Ox O2 Delivery O2 Flow Rate FiO2 04/22/18 08:35 98.0 85 16 140/ 99 Room Air Exam General Appearance: Alert, Oriented X3, Cooperative, No Acute Distress HEENT: Atraumatic, PERRLA Respiratory: Clear to Auscultation, Normal Air Movement Cardiovascular: Regular Rate, Normal S1, Normal S2, No Murmurs Abdominal: Normal Bowel Sounds, Soft, No Tenderness, No Hepatosplenomegaly, No Masses Extremities: No Clubbing, No Cyanosis, No Edema, Normal Pulses, No Tenderness/ Swelling Skin: No Rashes, No Breakdown, No Significant Lesion Neuro: Normal Gait, Normal Speech, Strength at 5/5 X4 Ext, Normal Tone, Sensation Intact Psych/Mental Status: Mental Status NL, Mood NL Results Labs Labs Laboratory Tests 04/22/18 08:45: White Blood Count 7.0, Red Blood Count 4.95, Hemoglobin 14.1, Hematocrit 43, Mean Corpuscular Volume 86, Mean Corpuscular Hemoglobin 29, Mean Corpuscular Hemoglobin Concent 33, Red Cell Distribution Width 13.0, Platelet Count 202, Mean Platelet Volume 10.9H, Neutrophils (%) (Auto) 55, Lymphocytes (%) (Auto) 34 , Monocytes (%) (Auto) 7, Eosinophils (%) (Auto) 3, Basophils (%) (Auto) 1, Neutrophils # (Auto) 3.9, Lymphocytes # (Auto) 2.4, Monocytes # (Auto) 0.5, Eosinophils # (Auto) 0.2, Basophils # (Auto) 0.1, Prothrombin Time 12.3, INR Comment 0.9, Activated Partial Thromboplast Time 30, D-Dimer 0.26, Sodium Level 140, Potassium Level 3.8, Chloride Level 106, Carbon Dioxide Level 25, Anion Gap 9, Blood Urea Nitrogen 11, Creatinine 0.83, Estimat Glomerular Filtration Rate > 60, BUN/Creatinine Ratio 13, Glucose Level 97, Calcium Level 9.7, Corrected Calcium , Magnesium Level 2.4, Total Bilirubin 0.7, Aspartate Amino Transf (AST/SGOT) 21, Alanine Aminotransferase (ALT/SGPT) 20, Alkaline Phosphatase 59, Myoglobin 44.3, Troponin I < 0.028, Total Protein 8.2, Albumin 4.6H, Lipase 17 A/P-Cardiology Admission Diagnosis Chest pain Hypertension Coronary artery disease Hypothyroidism Admission Status: Observation Assessment/Plan Chest pain nonspecific etiology, atypical in presentation, patient had cardiac workup done in the past and it was negative still having active chest pain after receiving GI cocktail and nitroglycerin, EKG and cardiac enzymes did not show any acute abnormality, CT of the chest was negative. I recommend evaluating EGD. 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 Continue to monitor Hypertension, good control on current medication. Continue to monitor Questionable hyperlipidemia I will evaluate lipid profile. Hypothyroidism, followed and managed by primary care physician. Clinical Quality Measures AMI/AHF: ASA po Prior to arrival: NATALYA Lopez MD Apr 22, 2018 11:10
[2018-04-22] MEDS ORDERED: fentaNYL INJECTION 100 MCG/2 ML AMP IVP STA (11:18)
--- NOTE | 2018-04-22 11:22 | NUR ---
DR MELISSA HERE AGAIN TO SEE PT.
--- NOTE | 2018-04-22 12:05 | NUR ---
STORMY MONTOYA admitted to room 413-1, with an admitting diagnosis of cest pain, on 04/22/18 from [place] via , accompanied by family and staff.STORMY MONTOYA introduced to surroundings, call light, bed controls, phone, TV, temperature control, lights, meal times, smoking policy, visitor policy, side rail policy, bathrooms and showers. Patient Rights given to patient in the handbook. STORMY MONTOYA verbalizes understanding that [facility] is not responsible for the loss or damage to any personal effects or valuables that are kept in the patients posession during their hospitalization. tient and/or family were informed about the Rapid Response Team and its purpose.
--- NOTE | 2018-04-22 12:10 | NUR ---
PT LEAVING FLOOR AT THIS TIME.
[2018-04-22] MEDS ORDERED: fentaNYL INJECTION 100 MCG/2 ML AMP IV PRN (12:15)
[2018-04-22] MEDS ORDERED: ONDANSETRON 4 MG/2 ML (SDV) Z0FRAN IV PRN (12:15)
[2018-04-22] MEDS ORDERED: NITROGLYCERIN 0.4 MG SL TABS BTL 25'S SL SCH (12:15)
[2018-04-22] MEDS ORDERED: CATHETER FLUSH 10 ML SYR IV PRN (12:15)
[2018-04-22] MEDS ORDERED: MIDAZOLAM 2 MG/2 ML (VERSED) VIAL ONE ×2 (12:16→12:17)
[2018-04-22] MEDS ORDERED: NS IV 500 ML 500 ML ONE (12:16)
[2018-04-22] MEDS ORDERED: HURRICAINE EXT TUBE (BENZOCAINE) ONE (12:17)
[2018-04-22] MEDS ORDERED: fentaNYL INJECTION 100 MCG/2 ML AMP ONE (12:17)
[2018-04-22] MEDS ORDERED: NS IV 500 ML 500 ML IV PRN (12:48)
[2018-04-22] MEDS ORDERED: HURRICAINE EXT TUBE (BENZOCAINE) XX PRN (13:00)
[2018-04-22] MEDS ORDERED: fentaNYL INJECTION 100 MCG/2 ML AMP IVP ONE (13:00)
[2018-04-22] MEDS ORDERED: MIDAZOLAM 2 MG/2 ML (VERSED) VIAL IVP ONE (13:00)
--- NOTE | 2018-04-22 13:00 | Conscious Sedation/ASA ---
Conscious Sedation Pre-Proced Time 11:55 ASA Score 2 For ASA 3 and 4: Consider anesthesia and medical clearance. Also, for patients with a history of failed moderate sedation consider anesthesia. Airway Lungs Heart ASA score ASA 1: a normal healthy patient ASA 2: a patient with a mild systemic disease (mid diabetes, controlled hypertension, obesity ASA 3: a patient with a severe systemic disease that limits activity (angina , COPD, prior Myocardial infarction) ASA 4: a patient with an incapacitating disease that is a constant threat to life (CHF, renal failure) ASA 5: a moribund patient not expected to survive 24 hrs. (ruptured aneurysm) ASA 6: a declared brain patient whose organs are being harvested. For emergent operations, add the letter E after the classification Mallampati Classification Grade 1 Sedation Plan Discussed options with patient/fam The patient is an appropriate candidate to undergo the planned procedure, sedation, and anesthesia. The patient immediately re-assessed prior to indication. MARCY FLOREZ MD Apr 22, 2018 13:00
--- NOTE | 2018-04-22 13:02 | Endo Procedure Record ---
Endo Procedure Report Date of Procedure Last Colonoscopy: Yes (02/18/18) Apr 22, 2018 Surgeon (s) MARCY FLOREZ MD Post Procedure/Op Diagnosis normal upper endoscopy Procedure Performed EGD Description of Procedure Anesthesia Type: Conscious Sedation Specimen(s) collected/removed none Description of the Procedure Indication for the procedure: This lady presented with substernal chest pain. Once cardiac source of pain was ruled out, at the request of her foreclosure paralegal, upper endoscopy was offered. Informed consent was obtained after reviewing the procedure in detail. Description of procedure: She was placed in left lateral decubitus position and her vital signs were monitored. Conscious sedation was achieved using Versed and she had received fentanyl and emergency room, prior to her arrival in the endoscopy suite. The flexible gastroscope was introduced down the esophagus, past the stomach, into the proximal duodenum. There was no abnormality She tolerated the procedure well and was taken back to the nursing area in a stable condition. Impression: Substernal pain. Normal endoscopy. Very likely diffuse esophageal spasm and therefore, an esophageal manometry would be arranged as an outpatient. Copy Copies To 1: GAVIN NDIAYE DO Copies To 2: NATALYA MELISSA MD, XAVIER M MD Apr 22, 2018 13:02
--- NOTE | 2018-04-22 13:15 | NUR ---
PT RETURNED TO FLOOR.
[2018-04-22] MEDS: NS IV 1000 ML 1,000 ML IV SCH ×2 (13:23→23:03)
[2018-04-22] MEDS ORDERED: AMLO5TAB9 PO (13:36)
[2018-04-22] MEDS ORDERED: LEVO112T55 PO (13:37)
[2018-04-22] MEDS ORDERED: ASPI-983 PO (13:38)
[2018-04-22] MEDS ORDERED: LEVO100T7 PO (13:39)
[2018-04-22] MEDS ORDERED: CALC-676 PO (13:40)
--- NOTE | 2018-04-22 13:41 | NUR ---
SPOKE WITH THE PATIENT ABOUT HER MEDICATIONS, SHE HAD A LIST IN HER PHONE. I COMPARED WITH THE EXT MED HX WELL CONTACTING [facility]. THE PATIENT STATES SHE IS WANTING TO TRANSFER ALL OF HER MEDICATION TO [facility]. [facility] LEVOTHYROXINE 100MCG #90 01-18-18 THAT IS NOT SHOWING ON THE EXT MED HX. THE LIST IN THE PATIENTS PHONE STATED 112MCG HOWEVER 100MCG IS THE ONLY STRENGTH [facility] HAS FILLED RECENTLY. [facility] DID NOT HAVE LEVOTHYROXINE ON FILE FOR THE PATIENT. THEY DID FILL BUPROPION XL 150MG DAILY #30 03-24-18 HOWEVER THE PATIENT STATES SHE IS NO LONGER TAKING IT. SHE IS TAKING THE METOPROLOL AND AMLODIPINE THAT WAS FILLED THERE. SHE TAKES ASPIRIN 81MG AND CALCIUM DAILY OTC.
[2018-04-22 15:34] LABS: MYOGLOBIN SERUM 33.9 NG/ML (10.0-92.0)
[2018-04-22] MEDS ORDERED: meTOproloL SUCCINATE 50 MG (TOPROL XL) TAB PO SCH (21:00)
[2018-04-23 03:45] VITALS: BP 122/75
[2018-04-23] MEDS ORDERED: LEVOTHYROXINE 100 MCG (LEVOTHROID) TAB PO SCH (06:30)
[2018-04-23 06:40] LABS: CHOLESTEROL 141 MG/DL (< 200); HDL CHOLESTEROL 30 MG/DL (40-60); TRIGLYCERIDES 136 MG/DL (<150); VLDL CHOLESTEROL 27 MG/DL (5-40)
--- NOTE | 2018-04-23 07:37 | Cardiology Progress Note ---
Subjective Date Seen by Provider: Apr 23, 2018 Time Seen by Provider: 07:35 Subjective/Events-last exam patient is feeling slightly better, still having some chest pain, left sided, persistent, not change with position Review of Systems General: No Chills, No Night Sweats, No Fatigue, No Malaise, No Appetite, No Other HEENT: No Head Aches, No Visual Changes, No Eye Pain, No Ear Pain, No Dysphasia , No Sinus Congestion, No Post Nasal Drip, No Sore Throat, No Other Pulmonary: No Dyspnea, No Cough, No Pleuritic Chest Pain, No Other Cardiovascular: Chest Pain; No: Palpitations, Orthopnea, Paroxysmal Noc. Dyspnea, Edema, Lt Headedness, Other Objective-Cardiology Exam Last Set of Vital Signs Vital Signs 04/23/18 03:45 Temp 97.6 Pulse 58 Resp 16 B/P (MAP) 122/75 (91) Pulse Ox 94 O2 Delivery Room Air Capillary Refill : Less Than 3 SecondsLess Than 3 Seconds I&O Intake and Output 04/23/18 00:00 Intake Total 1050 ml Output Total 0 ml Balance 1050 ml Intake Oral 800 ml IV Total 250 ml Output Urine Total 0 ml # Voids 1 Daily Weight Change No General: Alert, Oriented X3, Cooperative, No Acute Distress HEENT: Atraumatic, PERRLA Lungs: Clear to Auscultation, Normal Air Movement Heart: Regular Rate, Normal S1, Normal S2, No Murmurs Abdomen: Normal Bowel Sounds, Soft, No Tenderness, No Hepatosplenomegaly, No Masses Extremities: No Clubbing, No Cyanosis, No Edema, Normal Pulses, No Tenderness/ Swelling Skin: No Rashes, No Breakdown, No Significant Lesion Neuro: Normal Gait, Normal Speech, Strength at 5/5 X4 Ext, Normal Tone, Sensation Intact Psych/Mental Status: Mental Status NL, Mood NL Results Lab Laboratory Tests 04/22/18 08:45 A/P-Cardiology Admission Diagnosis Chest pain Hypertension Coronary artery disease Hypothyroidism Assessment/Plan Chest pain nonspecific etiology, atypical in presentation, patient had cardiac workup done in the past and it was negative still having active chest pain after receiving GI cocktail and nitroglycerin, EKG and cardiac enzymes did not show any acute abnormality, CT of the chest was negative. EGD did not show any abnormality, questionable esophageal spasm, she will be scheduled for manometric as an outpatient, could be related to pleurisy. Patient will be started on NSAID Coronary artery disease, mild small vessel disease with aneurysmal dilatation in the proximal LAD, nonobstructive disease per cardiac catheterization December 2014, doing well. Continue to monitor Hypertension, good control on current medication. Continue to monitor Lipid profile showed no significant hyperlipidemia Hypothyroidism, followed and managed by primary care physician. Clinical Quality Measures AMI/AHF: ASA po Prior to arrival: No DVT/VTE Risk/Contraindication: Risk Factor Score Per Nursin RFS Level Per Nursing on Admit: 3=High NATALYA MELISSA MD Apr 23, 2018 07:37
[2018-04-23] MEDS ORDERED: PANT40TA3 PO (07:39)
[2018-04-23] MEDS ORDERED: IBUP-16 PO (07:39)
--- NOTE | 2018-04-23 07:40 | Clinic Account Progress/Dx ---
Clinic Account Progress/Dx DIAGNOSIS: Date Seen by Provider: Apr 23, 2018 Time Seen by Provider: 07:39 Chest pain Coronary artery disease Hypertension Hypothyroidism NATALYA MELISSA MD Apr 23, 2018 07:40
[2018-04-23 08:00] VITALS: BP 126/71
[2018-04-23] MEDS: NS IV 1000 ML 1,000 ML IV SCH (08:39)
[2018-04-23] MEDS ORDERED: PANTOPRAZOLE 40 MG (PROTONIX) TAB PO SCH (09:00)
[2018-04-23] MEDS ORDERED: ASPIRIN E.C. 81 MG (ECOTRIN) TAB PO SCH ×2 (09:00)
[2018-04-23] MEDS ORDERED: NON-FORMULARY MEDICATION 1 EA EA (Amlodipine Besylate 5 MG) PO SCH (09:00)
[2018-04-23] MEDS ORDERED: amLODIPine 5 MG (NORVASC) TAB PO SCH (09:00)
--- OUTSIDE RECORDS SUMMARY | 2018-04-23 15:13 | XMS REPORT | Continuity of Care Document ---
Author Author [facility] Organization [facility] Address Unknown Phone Unavailable Allergies Active Description Code Type Severity Reaction Onset Reported/Identified Relationship to Patient Clinical Status Yes NKANo Known Allergies NKA Miscellaneous Allergy Mild N/A 06/17/2009 Medications There is no data. Problems Date Dx Coded Attending Type Code Diagnosis Diagnosed By 01/08/2015 NATALYA MELISSA MD, Ot E03.9 HYPOTHYROIDISM, UNSPECIFIED 01/08/2015 NATALYA MELISSA MD Ot I25.10 ATHSCL HEART DISEASE OF [place] CORONARY 01/08/2015 NATALYA MELISSA MD Ot R06.00 DYSPNEA, UNSPECIFIED 01/08/2015 NATALYA MELISSA MD Ot R07.89 OTHER CHEST PAIN 01/08/2015 NATALYA MELISSA MD Ot Z79.899 OTHER ACCESS DEVELOPER (CURRENT) DRUG THERAPY 05/04/2017 ORENDER DO, GAVIN [...] NE 02/18/2018 MARCY FLOREZ MD Ot Z79.82 LONG-TERM (CURRENT) USE OF ASPIRIN 02/18/2018 MARCY FLOREZ MD Ot Z79.899 OTHER LONG-TERM (CURRENT) DRUG THERAPY 02/19/2018 MARCY FLOREZ MD Ot E03.9 HYPOTHYROIDISM, UNSPECIFIED 02/19/2018 MARCY FLOREZ MD Ot I10 ESSENTIAL (PRIMARY) HYPERTENSION 02/19/2018 MARCY FLOREZ MD Ot Z12.11 ENCOUNTER FOR SCREENING FOR MALIGNANT NE 02/19/2018 MARCY FLOREZ MD Ot Z79.82 LONG-TERM (CURRENT) USE OF ASPIRIN 02/19/2018 MARCY FLOREZ MD Ot Z79.899 OTHER LONG-TERM (CURRENT) DRUG THERAPY 02/26/2018 MARCY FLOREZ MD Ot E03.9 HYPOTHYROIDISM, UNSPECIFIED 02/26/2018 MARCY FLOREZ MD Ot I10 ESSENTIAL (PRIMARY) HYPERTENSION 02/26/2018 MARCY FLOREZ MD Ot Z12.11 ENCOUNTER FOR SCREENING FOR MALIGNANT NE 02/26/2018 MARCY FLOREZ MD Ot Z79.82 LONG-TERM (CURRENT) USE OF ASPIRIN 02/26/2018 MARCY FLOREZ MD Ot Z79.899 OTHER ACCESS DEVELOPER (CURRENT) DRUG THERAPY Procedures There is no data. Results There is no data. Encounters ACCT No. Visit Date/Time Discharge Status Pt. Type Provider Facility Loc./Unit Complaint [id number] 02/18/2018 06:53:00 02/18/2018 10:15:00 DIS Outpatient MARCY FLOREZ MD [facility] ENDO SCREENING [id number] 02/12/2018 13:15:00 02/12/2018 13:48:00 DIS Outpatient MARCY FLOREZ MD [facility] PREOP COLONOSCOPY [id number] 01/18/2018 07:40:00 01/18/2018 23:59:59 CLS Outpatient GAVIN NDIAYE DO [facility] RAD SCREENING [id number] 05/03/2017 13:28:00 05/03/2017 23:59:59 CLS Outpatient GAVIN NDIAYE DO [facility] RAD LT NECK MASS [id number] 01/07/2015 14:07:00 01/08/2015 11:05:00 DIS Outpatient SHIN MARSHALL, NATALYA Mitchell [facility] CATH CHEST PAIN 09/201512/22/2017 23:11:53 12/22/2017 23:59:59 CLS Outpatient
== END 2018-04-23 14:57 | disposition home or self-care (01) ==
LOC: EDUNIT# 08:33 → ER 08:34 → SDC 11:29 → 4TH 11:29 → UNDOADMOB 11:29 → 4TH 04-23 13:45 → SDC 04-23 14:57 → UNDODISOB 04-23 14:57
PROVIDERS: ATTEND Internal Medicine Cardiovascular Disease
DX: R07.9 Chest pain, unspecified (principal); I25.10 Atherosclerotic heart disease of native coronary artery without angina pectoris; I10 Essential (primary) hypertension; E03.9 Hypothyroidism, unspecified; Z79.82 Long term (current) use of aspirin; Z79.899 Other long term (current) drug therapy
CPT/HCPCS: 36415; 71045; 71275; 80053; 80061; 83690; 83735; 83874; 84484; 85025; 85379; 85610; 85730; 93005; 93041

== ENCOUNTER 2018-10-23 08:19 | Emergency (ER) | payer OTHER, BC ==
[~2018-10-23] VITALS: Ht 162.6 cm; Wt 97.5 kg
[~2018-10-23 08:19] MED LIST changes: +CALC-676 PO; +IBUP-16 PO; +LEVO112T55 PO
--- OUTSIDE RECORDS SUMMARY | 2018-10-23 08:23 | XMS REPORT | Continuity of Care Document ---
Author Organization Unknown Address Unknown Allergies Active Description Code Type Severity Reaction Onset Reported/Identified Relationship to Patient Clinical Status Yes NKANo Known Allergies NKA Miscellaneous Allergy Mild N/A 06/17/2009 Medications There is no data. Problems Date Dx Coded Attending Type Code Diagnosis Diagnosed By 01/08/2015 NATALYA MELISSA MD, Ot E03.9 HYPOTHYROIDISM, UNSPECIFIED 01/08/2015 NATALYA MELISSA MD Ot I25.10 ATHSCL HEART DISEASE OF [place] CORONARY 01/08/2015 NATALYA MELISSA MD Ot R06.00 DYSPNEA, UNSPECIFIED 01/08/2015 NATALYA MELISSA MD Ot R07.89 OTHER CHEST PAIN 01/08/2015 NATALYA MELISSA MD Ot Z79.899 OTHER KELP CUTTER (CURRENT) DRUG THERAPY 05/04/2017 ORENDER DO, GAVIN [...] LOCALIZED SWELLING, MASS AND LUMP, NECK 01/22/2018 GAVIN NDIAYE DO Ot Z12.31 ENCNTR SCREEN MAMMOGRAM FOR MALIGNANT NE 01/24/2018 GAVIN NDIAYE DO S Ot Z12.31 ENCNTR SCREEN MAMMOGRAM FOR [...] NE 02/18/2018 MARCY FLOREZ MD Ot Z79.82 KELP CUTTER (CURRENT) USE OF ASPIRIN 02/18/2018 MARCY FLOREZ MD Ot Z79.899 OTHER CUSTODIAL (CURRENT) DRUG THERAPY 02/19/2018 MARCY FLOREZ MD Ot E03.9 HYPOTHYROIDISM, UNSPECIFIED 02/19/2018 MARCY FLOREZ MD Ot I10 ESSENTIAL (PRIMARY) HYPERTENSION 02/19/2018 MARCY FLOREZ MD Ot Z12.11 ENCOUNTER FOR SCREENING FOR MALIGNANT NE 02/19/2018 MARCY FLOREZ MD Ot Z79.82 CUSTODIAL (CURRENT) USE OF ASPIRIN 02/19/2018 MARCY FLOREZ MD Ot Z79.899 OTHER CUSTODIAL (CURRENT) DRUG THERAPY 02/26/2018 MARCY FLOREZ MD Ot E03.9 HYPOTHYROIDISM, UNSPECIFIED 02/26/2018 MARCY FLOREZ MD Ot I10 ESSENTIAL (PRIMARY) HYPERTENSION 02/26/2018 MARCY FLOREZ MD Ot Z12.11 ENCOUNTER FOR SCREENING FOR MALIGNANT NE 02/26/2018 MARCY FLOREZ MD Ot Z79.82 CUSTODIAL (CURRENT) USE OF ASPIRIN 02/26/2018 MARCY FLOREZ MD Ot Z79.899 OTHER CUSTODIAL (CURRENT) DRUG THERAPY 04/23/2018 NATALYA MELISSA MD Ot E03.9 HYPOTHYROIDISM, UNSPECIFIED 04/23/2018 NATALYA MELISSA MD Ot I10 ESSENTIAL (PRIMARY) HYPERTENSION 04/23/2018 NATALYA MELISSA MD Ot I25.10 ATHSCL HEART DISEASE OF [place] CORONARY 04/23/2018 NATALYA MELISSA MD Ot R07.9 CHEST PAIN, UNSPECIFIED 04/23/2018 NATALYA MELISSA MD Ot Z79.82 KELP CUTTER (CURRENT) USE OF ASPIRIN 04/23/2018 NATALYA MELISSA MD Ot Z79.899 OTHER CUSTODIAL (CURRENT) DRUG THERAPY 04/24/2018 NATALYA MELISSA MD Ot E03.9 HYPOTHYROIDISM, UNSPECIFIED 04/24/2018 NATALYA MELISSA MD Ot I10 ESSENTIAL (PRIMARY) HYPERTENSION 04/24/2018 NATALYA MELISSA MD Ot I25.10 ATHSCL HEART DISEASE OF [place] CORONARY 04/24/2018 NATALYA MELISSA MD Ot R07.9 CHEST PAIN, UNSPECIFIED 04/24/2018 NATALYA MELISSA MD Ot Z79.82 CUSTODIAL (CURRENT) USE OF ASPIRIN 04/24/2018 NATALYA MELISSA MD Ot Z79.899 OTHER KELP CUTTER (CURRENT) DRUG THERAPY 04/25/2018 NATALYA MELISSA MD Ot E03.9 HYPOTHYROIDISM, UNSPECIFIED 04/25/2018 NATALYA MELISSA MD Ot I10 ESSENTIAL (PRIMARY) HYPERTENSION 04/25/2018 NATALYA MELISSA MD Ot I25.10 ATHSCL HEART DISEASE OF [place] CORONARY 04/25/2018 NATALYA MELISSA MD Ot R07.9 CHEST PAIN, UNSPECIFIED 04/25/2018 NATALYA MELISSA MD Ot Z79.82 CUSTODIAL (CURRENT) USE OF ASPIRIN 04/25/2018 NATALYA MELISSA MD Ot Z79.899 OTHER CUSTODIAL (CURRENT) DRUG THERAPY 04/28/2018 NATALYA MELISSA MD Ot E03.9 HYPOTHYROIDISM, UNSPECIFIED 04/28/2018 NATALYA MELISSA MD Ot I10 ESSENTIAL (PRIMARY) HYPERTENSION 04/28/2018 NATALYA MELISSA MD Ot I25.10 ATHSCL HEART DISEASE OF [place] CORONARY 04/28/2018 NATALYA MELISSA MD Ot R07.9 CHEST PAIN, UNSPECIFIED 04/28/2018 NATALYA MELISSA MD Ot Z79.82 CUSTODIAL (CURRENT) USE OF ASPIRIN 04/28/2018 NATALYA MELISSA MD, Ot Z79.899 OTHER CUSTODIAL (CURRENT) DRUG THERAPY 06/24/2018 NATALYA MELISSA MD, Ot E03.9 HYPOTHYROIDISM, UNSPECIFIED 06/24/2018 NATALYA MELISSA MD, Ot I10 ESSENTIAL (PRIMARY) HYPERTENSION 06/24/2018 NATALYA MELISSA MD, Ot I25.10 ATHSCL HEART DISEASE OF [place] CORONARY 06/24/2018 NATALYA MELISSA MD, Ot R07.9 CHEST PAIN, UNSPECIFIED 06/24/2018 NATALYA MELISSA MD, Ot Z79.82 KELP CUTTER (CURRENT) USE OF ASPIRIN 06/24/2018 NATALYA MELISSA MD, Ot Z79.899 OTHER CUSTODIAL (CURRENT) DRUG THERAPY Procedures There is no data. Results Test Result Range Complete blood count (CBC) with automated white blood cell (WBC) differential - 04/22/18 08:45 Blood leukocytes automated count (number/volume) 7.0 10*3/uL 4.3-11.0 Blood erythrocytes automated count (number/volume) 4.95 10*6/uL 4.35-5.85 Venous blood hemoglobin measurement (mass/volume) 14.1 g/dL 11.5-16.0 Blood hematocrit (volume fraction) 43 % 35-52 Automated erythrocyte mean corpuscular volume 86 [foz_us] 80-99 Automated erythrocyte mean corpuscular hemoglobin (mass per erythrocyte) 29 pg 25-34 Automated erythrocyte mean corpuscular hemoglobin concentration measurement (mass/volume) 33 g/dL 32-36 Automated erythrocyte distribution width ratio 13.0 % 10.0- 14.5 Automated blood platelet count (count/volume) 202 10*3/uL 130-400 Automated blood platelet mean volume measurement 10.9 [foz_us] 7.4-10.4 Automated blood neutrophils/100 leukocytes 55 % 42-75 Automated blood lymphocytes/100 leukocytes 34 % 12-44 Blood monocytes/100 leukocytes 7 % 0-12 Automated blood eosinophils/100 leukocytes 3 % 0-10 Automated blood basophils/100 leukocytes 1 % 0-10 Blood neutrophils automated count (number/volume) 3.9 10*3 1.8-7.8 Blood lymphocytes automated count (number/volume) 2.4 10*3 1.0-4.0 Blood monocytes automated count (number/volume) 0.5 10*3 0.0- 1.0 Automated eosinophil count 0.2 10*3/uL 0.0-0.3 Automated blood basophil count (count/volume) 0.1 10*3/uL 0.0-0.1 PT panel in platelet poor plasma by coagulation assay - 04/22/18 08:45 Prothrombin time (PT) in platelet poor plasma by coagulation assay 12.3 s 12.2-14.7 INR in platelet poor plasma or blood by coagulation assay 0.9 0.8-1.4 Activated partial thromboplastin time (aPTT) in platelet poor plasma bycoagulation assay - 04/22/18 08:45 Activated partial thromboplastin time (aPTT) in platelet poor plasma bycoagulation assay 30 s 24-35 Fibrin D-dimer FEU measurement in platelet poor plasma (mass/volume) - 04/22/18 08:45 Fibrin D-dimer FEU measurement in platelet poor plasma (mass/volume) 0.26 ug/mL 0.00-0.49 Comprehensive metabolic panel - 04/22/18 08:45 Serum or plasma sodium measurement (moles/volume) 140 mmol/L 135-145 Serum or plasma potassium measurement (moles/volume) 3.8 mmol/L 3.6-5.0 Serum or plasma chloride measurement (moles/volume) 106 mmol/L 98-107 Carbon dioxide 25 mmol/L 21-32 Serum or plasma anion gap determination (moles/volume) 9 mmol/L 5-14 Serum or plasma urea nitrogen measurement (mass/volume) 11 mg/dL 7-18 Serum or plasma creatinine measurement (mass/volume) 0.83 mg/dL 0.60-1.30 Serum or plasma urea nitrogen/creatinine mass ratio 13 NRG Serum or plasma creatinine measurement with calculation of estimated glomerular filtration rate > NRG Serum or plasma glucose measurement (mass/volume) 97 mg/dL 70-105 Serum or plasma calcium measurement (mass/volume) 9.7 mg/dL 8.5-10.1 Serum or plasma total bilirubin measurement (mass/volume) 0.7 mg/dL 0.1-1.0 Serum or plasma alkaline phosphatase measurement (enzymatic activity/volume) 59 U/L 40-136 Serum or plasma aspartate aminotransferase measurement (enzymatic activity/volume) 21 U/L 5-34 Serum or plasma alanine aminotransferase measurement (enzymatic activity/volume) 20 U/L 0-55 Serum or plasma protein measurement (mass/volume) 8.2 g/dL 6.4-8.2 Serum or plasma albumin measurement (mass/volume) 4.6 g/dL 3.2-4.5 Magnesium - 04/22/18 08:45 Magnesium 2.4 mg/dL 1.8-2.4 Lipase - 04/22/18 08:45 Lipase 17 U/L 8-78 Serum or plasma troponin i.cardiac measurement (mass/volume) - 04/22/18 08:45 Serum or plasma troponin i.cardiac measurement (mass/volume) < ng/mL <0.028 Myoglobin, serum - 04/22/18 08:45 Myoglobin, serum 44.3 ng/mL 10.0-92.0 Serum or plasma troponin i.cardiac measurement (mass/volume) - 04/22/18 15:00 Serum or plasma troponin i.cardiac measurement (mass/volume) < ng/mL <0.028 Myoglobin, serum - 04/22/18 15:00 Myoglobin, serum 33.9 ng/mL 10.0-92.0 Serum or plasma troponin i.cardiac measurement (mass/volume) - 04/23/18 05:15 Serum or plasma troponin i.cardiac measurement (mass/volume) < ng/mL <0.028 Lipid 1996 panel - 04/23/18 05:15 Serum or plasma triglyceride measurement (mass/volume) 136 mg/dL <150 Serum or plasma cholesterol measurement (mass/volume) 141 mg/dL < 200 Serum or plasma cholesterol in HDL measurement (mass/volume) 30 mg/dL 40-60 Cholesterol in LDL [mass/volume] in serum or plasma by direct assay 83 mg/dL 1-129 Serum or plasma cholesterol in VLDL measurement (mass/volume) 27 mg/dL 5-40 Encounters ACCT No. Visit Date/Time Discharge Status Pt. Type Provider Facility Loc./Unit Complaint 09/201509/10/2018 23:18:44 09/10/2018 23:59:59 CLS Outpatient [id number] 04/22/2018 11:29:00 04/23/2018 14:57:00 [id number] 02/18/2018 06:53:00 02/18/2018 10:15:00 DIS Outpatient VIKKI MARSHALL, MARCY [facility] ENDO SCREENING [id number] 02/12/2018 13:15:00 02/12/2018 13:48:00 DIS Outpatient VIKKI MARSHALL, MARCY [facility] PREOP COLONOSCOPY [id number] 01/18/2018 07:40:00 01/18/2018 23:59:59 CLS Outpatient GAVIN NDIAYE DO [facility] RAD SCREENING [id number] 05/03/2017 13:28:00 05/03/2017 23:59:59 CLS Outpatient GAVIN NDIAYE DO [facility] RAD LT NECK MASS [id number] 01/07/2015 14:07:00 01/08/2015 11:05:00 DIS Outpatient SHIN MARSHALL, NATALYA [facility] CATH CHEST PAIN
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
--- NOTE | 2018-10-23 10:08 | NUR ---
Dr. Elizabeth removed C-Collar at this time.
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
[2018-10-23 10:37] VITALS: BP 140/82
== END 2018-10-23 10:37 | disposition home or self-care (01) ==
LOC: ER 08:19 → EDUNIT# 08:19 → ER 10:37
DX: R51 Headache (principal); M54.2 Cervicalgia; M25.511 Pain in right shoulder; I10 Essential (primary) hypertension; E03.9 Hypothyroidism, unspecified; R40.2142 Coma scale, eyes open, spontaneous, at arrival to emergency department; R40.2252 Coma scale, best verbal response, oriented, at arrival to emergency department; R40.2362 Coma scale, best motor response, obeys commands, at arrival to emergency department; Z79.82 Long term (current) use of aspirin; Z90.49 Acquired absence of other specified parts of digestive tract; Z90.710 Acquired absence of both cervix and uterus; V49.49XA Driver injured in collision with other motor vehicles in traffic accident, initial encounter
CPT/HCPCS: 70450; 72125; 73030

== ENCOUNTER → 2019-01-29 | Outpatient (CLI) | payer BC, OTHER ==
--- NOTE | 2019-01-29 08:54 | Diagnostic Imaging Report ---
INDICATION: Routine screening. Comparison is made with prior mammogram from 01/18/2018. 2-D and 3-D bilateral screening mammography was performed with CAD. The current study was also evaluated with a Computer Aided Detection (CAD) system. 3-D tomosynthesis was also performed and reviewed. Scattered fibroglandular densities are identified bilaterally. Benign nodules outer left breast are stable. There are benign calcifications in both breasts. No mass or malignant appearing microcalcifications are seen. The axillae are unremarkable. IMPRESSION: No mammographic features suspicious for malignancy are identified. ACR BI-RADS Category 2: Benign findings. Result letter will be mailed to the patient. Note: At least 10% of breast cancer is not imaged by mammography. Dictated by: Dictated on workstation # [id number]
== END ==
LOC: RAD 07:14
PROVIDERS: ATTEND Family Medicine
DX: Z12.31 Encounter for screening mammogram for malignant neoplasm of breast (principal)
CPT/HCPCS: 77067

== ENCOUNTER → 2019-03-04 | Outpatient (CLI) | payer BC ==
[~2019-03-04] MED LIST changes: -METO-370 PO; +METO50TA7 PO
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
== END ==
LOC: RAD 07:39
PROVIDERS: ATTEND Family Medicine
DX: M47.22 Other spondylosis with radiculopathy, cervical region (principal)
CPT/HCPCS: 72141

== ENCOUNTER 2020-04-19 11:19 | Emergency (ER) | payer BC, OTHER ==
[~2020-04-19] VITALS: Ht 157 cm; Wt 96.0 kg
[~2020-04-19 11:19] MED LIST changes: +AMLO-250 PO; -AMLO5TAB9 PO; +ASPI-1238 PO; -ASPI-983 PO; -PANT40TA3 PO; +PANT40TA52 PO
--- NOTE | 2020-04-19 11:50 | ED General ---
General Stated Complaint: ESCAMILLA,CHILLS,LOSS OF SMELL Source of Information: Patient Exam Limitations: No Limitations History of Present Illness Date Seen by Provider: Apr 19, 2020 Time Seen by Provider: 11:48 Initial Comments To ER with headache, chills, body aches that began yesterday. Daughter has similar symptoms and she was around her daughter. Daughter is to be tested tomorrow. She had some nasal congestion during the night so she applied Vicks to her chest but could not smell it. She has a history of hypertension for which she sees Dr. Shay. She states she called him and he wanted her to have a rapid swab and to be called with the results. Timing/Duration: 1-2 Days Severity: Moderate Associated Systoms: Denies Symptoms Allergies and Home Medications Allergies Coded Allergies: NKANo Known Allergies (Unverified Allergy, Mild, 06/17/09) Home Medications Amlodipine Besylate 5 Mg Tablet, 5 MG PO DAILY, (Reported) Aspirin 81 Mg Tablet., 81 MG PO DAILY, (Reported) Calcium Carbonate/Vitamin D3 1 Each Tablet, 1 TAB PO DAILY, (Reported) Ibuprofen 200 Mg Tablet, 400 MG PO BID Prescribed by: NATALYA SHAY on 04/23/18 0739 Levothyroxine Sodium 100 Mcg Tablet, 100 MCG PO DAILY, (Reported) Metoprolol Succinate 50 Mg Tab.er.24h, 50 MG PO HS, (Reported) Pantoprazole Sodium 40 Mg Tablet.dr, 40 MG PO DAILY Prescribed by: NATALYA SHAY on 04/23/18 0739 Patient Home Medication List Home Medication List Reviewed: Yes Review of Systems Review of Systems Constitutional: see HPI, chills, fever EENTM: see HPI Respiratory: no symptoms reported; No cough, No short of breath Cardiovascular: no symptoms reported Genitourinary: no symptoms reported Musculoskeletal: no symptoms reported Skin: no symptoms reported Psychiatric/Neurological: No Symptoms Reported Hematologic/Lymphatic: No Symptoms Reported Past Hltgxip-Blzlch-Lrjyiq Hx Patient Social History 2nd Hand Smoke Exposure: No Recent Hopitalizations: No Immunizations Up To Date Date of Influenza Vaccine: Dec 31, 2017 Seasonal Allergies Seasonal Allergies: Yes Past Medical History Surgeries: Yes Appendectomy, Gallbladder, Hysterectomy Respiratory: No Cardiac: Yes Hypertension Neurological: No Reproductive Disorders: No Sexually Transmitted Disease: No Genitourinary: No Gastrointestinal: No Musculoskeletal: No Endocrine: Yes Hypothyroidsim HEENT: No Cancer: No Did You Recieve Any Treatments: No Psychosocial: No Integumentary: No Blood Disorders: No Physical Exam Vital Signs Vital Signs - First Documented 04/19/20 11:40 Temp 36.3 Pulse 73 Resp 18 B/P (MAP) 150/99 (116) Pulse Ox 94 O2 Delivery Room Air Capillary Refill : Height, Weight, BMI Height: 5'4.00" Weight: 215lbs. 0.0oz. [id number]; 36.9 BMI Method:Stated General Appearance: No Apparent Distress, WD/WN, Other (no distress. no tachycardia or tachypnea. RR 18, O2 96% room air. lungs cta. ) Eyes: Bilateral Eye Normal Inspection, Bilateral Eye PERRL, Bilateral Eye EOMI Neck: Full Range of Motion, Normal Inspection Respiratory: No Accessory Muscle Use, No Respiratory Distress Cardiovascular: Regular Rate, Rhythm, Normal Peripheral Pulses Gastrointestinal: Non Tender, Soft Neurologic/Psychiatric: Alert, Oriented x3 Skin: Normal Color, Warm/Dry Progress/Results/Core Measures Suspected Sepsis SIRS Temperature: Pulse: Respiratory Rate: Blood Pressure / Mean: Results/Orders Lab Results Laboratory Tests Test 04/19/20 11:45 Range/Units Coronavirus 2019 (OLY) Negative Negative My Orders Orders - AISHA LIANG APRN Coronavirus Sars-Cov-2 So 2019 (04/19/20 11:46) Covid 19 Inhouse Test (04/19/20 11:46) Vital Signs/I&O 04/19/20 04/19/20 11:40 11:40 Temp 36.3 Pulse 73 Resp 18 B/P (MAP) 150/99 (116) Pulse Ox 94 O2 Delivery Room Air Room Air Capillary Refill : Departure Impression Primary Impression: Viral syndrome Disposition: HOME, SELF-CARE Condition: Stable Departure-Patient Inst. Decision time for Depature: 12:36 Referrals: GAVIN NDIAYE DO (PCP/Family) Primary Care Physician Patient Instructions: VIRAL SYNDROME Add. Discharge Instructions: 1. Follow-up with your doctor this week 2. Return to ER for any worsening. Copy Copies To 1: NATALYA SHAY MD; GAVIN NDIAYE PETER J APRN Apr 19, 2020 11:50
[2020-04-19 12:43] VITALS: BP 129/89
== END 2020-04-19 12:44 | disposition home or self-care (01) ==
LOC: EDUNIT# 11:19 → ER 11:21
DX: B34.9 Viral infection, unspecified (principal); I10 Essential (primary) hypertension; E03.9 Hypothyroidism, unspecified; Z79.890 Hormone replacement therapy; Z20.828 Contact with and (suspected) exposure to other viral communicable diseases; Z79.82 Long term (current) use of aspirin
CPT/HCPCS: 87635; 99282

== ENCOUNTER → 2021-08-26 | Outpatient (CLI) | payer OTHER ==
[~2021-08-26] MED LIST changes: +BUPR150T24 PO; -BUPR150T7 PO
--- NOTE | 2021-08-26 09:00 | Diagnostic Imaging Report ---
INDICATION: Routine screening. Comparison is made with prior mammogram from 01/29/2019 and 01/18/2018. 2-D and 3-D bilateral screening mammography was performed with CAD. Scattered fibroglandular densities are identified bilaterally. Intraparenchymal lymph nodes in the upper outer left breast are stable. There are benign calcifications present. No spiculated mass or malignant-appearing microcalcifications are seen. Axillae are unremarkable. IMPRESSION: No mammographic features suspicious for malignancy are identified. ACR BI-RADS Category 2: Benign findings. Result letter will be mailed to the patient. Note: At least 10% of breast cancer is not imaged by mammography. BI-RADS Category 2 Dictated by: Dictated on workstation # [id number]
== END ==
LOC: RAD 07:31
PROVIDERS: ATTEND Family Medicine
DX: Z12.31 Encounter for screening mammogram for malignant neoplasm of breast (principal)
CPT/HCPCS: 77063; 77067